=== PATIENT | female | born 1955 | race African-American/Black ===

== ENCOUNTER → 2020-12-09 | Outpatient (CLI) | payer OTHER ==
--- NOTE | 2020-12-09 18:09 | RAD ---
EXAM: XR CHEST 2V 12/09/2020 10:20 AM CLINICAL INDICATION: Left lower rib cage pain and swelling COMPARISON: None TECHNIQUE: PA and lateral views of the chest FINDINGS: The heart and mediastinum are normal. Lungs are well-expanded and clear. No consolidatio n, pleural effusion, or pneumothorax. Pulmonary vascularity is normal. No acute osseous abnormality. IMPRESSION: No acute cardiopulmonary abnormality. Electronically signed by: Kamini Chou MD (12/09/2020 6:07 PM) [id number]
--- NOTE | 2020-12-11 19:58 | RAD ---
DATE: 12/09/2020 EXAM: DIGITAL SCREEN BILAT W/CAD HISTORY: Screening COMPARISON: None available. Baseline exam. This study was interpreted with the benefit of Computerized Aided Detection (CAD). Breast Density: HETERO The breast parenchyma is heterogenously dense, which could reduce sensitivity of mammography. Breast parenchyma level C. FINDINGS: No suspicious mass, opacifications, or architectural distortion. IMPRESSION: No evidence of malignancy. BI-RADS CATEGORY: 1 NEGATIVE RECOMMENDED FOLLOW-UP: 12M 12 MONTH FOLLOW-UP PQRS compliance statement: Patient information was entered into a reminder system with a target due date for the next mammogram. Mammography is a sensitive method for finding small breast cancers, but it does not detect them all and is not a substitute for careful clinical examination. A negative mammogram does not negate a clinically suspicious finding and should not result in delay in biopsying a clinically suspicious abnormality. "Our facility is accredited by the [employer] Mammography Program."
== END ==
LOC: MAMMO 09:51
PROVIDERS: ATTEND Nurse Practitioner Family
DX: Z12.31 Encounter for screening mammogram for malignant neoplasm of breast (principal); R07.81 Pleurodynia
CPT/HCPCS: 71046; 77067

== ENCOUNTER → 2021-01-13 | Outpatient (CLI) | payer OTHER ==
--- NOTE | 2021-01-13 09:17 | RAD ---
EXAM: Abdomen sonogram. HISTORY: Elevated alpha-fetoprotein. Hepatitis C. TECHNIQUE: Sonographic imaging of the abdomen was performed. COMPARISON: None. FINDINGS: The liver is normal in size. There is heterogeneous hepatic parenchyma. No focal hepatic le diamond is seen. The gallbladder is unremarkable. The common bile duct is normal in caliber. The spleen is normal in size and contains calcified granulomas. The pancreas is unremarkable. There is an ectati c atherosclerotic abdominal aorta. The right kidney measures 8.7 cm [id number]. The left kidney mehul sures 10.4 cm [id number]. The left renal sinus is not well seen, possibly due to a partially duplic ated collecting system. IMPRESSION: 1. Heterogeneous hepatic parenchyma. No focal hepatic lesion is seen. Note is made that MRI is more s ensitive for small hepatic lesions. 2. Slight decreased right renal size. This may be due to measurement technique or mild atrophy. The l eft renal sinus is not well defined, possibly due to a partially duplicated collecting system. No onelia al mass or hydronephrosis is seen. 3. Ectatic atherosclerotic abdominal aorta. Electronically signed by: Gege Regalado MD (01/13/2021 9:15 AM) [id number]
== END ==
LOC: US 07:59
PROVIDERS: ATTEND Family Medicine
DX: B19.20 Unspecified viral hepatitis C without hepatic coma (principal); R77.2 Abnormality of alphafetoprotein
CPT/HCPCS: 76700

== ENCOUNTER → 2021-06-18 | Outpatient (CLI) | payer OTHER ==
--- NOTE | 2021-06-18 12:35 | RAD ---
AP and Lateral Views of the Chest 06/18/2021 12:25 PM Indication: Reason: COUGH X 3 WEEKS / Spl. Instructions: / History: Comparison: Chest radiograph December 09, 2020 Findings: There is no focal consolidation or infiltrate identified. The cardiomediastinal silhouette is within normal limits. There is no evidence of pneumothorax or pleural effusion. No acute osseous a bnormalities are identified. Impression: No evidence of acute cardiopulmonary process. Electronically signed by: Ruben Hutton MD (06/18/2021 12:32 PM) [id number]
== END ==
LOC: RAD 12:17
PROVIDERS: ATTEND Nurse Practitioner Primary Care
DX: R05.9 Cough, unspecified (principal)
CPT/HCPCS: 71046

== ENCOUNTER → 2021-09-10 | Outpatient (CLI) | payer OTHER ==
--- NOTE | 2021-09-10 14:23 | RAD ---
EXAM: CT CHEST WITHOUT CONTRAST (LDCT LUNG CANCER SCREENING). HISTORY: Risk factors for pulmonary malignancy. Tobacco use. TECHNIQUE: CT of the chest was performed without intravenous contrast using a low-dose lung screening protocol. Findings analysis is based on ACR Lung-RADS v1.1. *One or more of the following individual ized dose reduction techniques were utilized for this examination: 1. Automated exposure control. 2. Adjustment of the mA and/or kV according to patient size. 3. Use of iterative reconstruction technique. COMPARISON: None. FINDINGS: The heart is mildly enlarged. There is calcified atherosclerotic plaque involving the aorta and coronary arteries. There is an ectatic ascending aorta measuring 3.8 cm. There are calcified med iastinal and right hilar and infrahilar granulomas. There is no lymphadenopathy. There is no pneumothorax or pleural effusion. There is no infiltrate. There is mild emphysema. There is a 2 mm groundglass nodule along the lateral right major pleural fissure, likely due to a fissural lymph node. There is no suspicious pulmonary nodule. There is bilateral basilar atelectasis. There is no acute finding involving the upper abdomen. There is no acute or suspicious osseous finding. IMPRESSION: 1. No suspicious pulmonary nodule. Lung RADS category 1: Low dose lung cancer screening CT in [facility] is recommended. 2. Mild emphysema. 3. Mild cardiomegaly and ectatic ascending aorta. Electronically signed by: Gege Regalado MD (09/10/2021 2:21 PM) [id number]
== END ==
LOC: CT 13:22
PROVIDERS: ATTEND Nurse Practitioner Primary Care
DX: Z12.2 Encounter for screening for malignant neoplasm of respiratory organs (principal); J43.9 Emphysema, unspecified; I51.7 Cardiomegaly; I77.810 Thoracic aortic ectasia; I70.0 Atherosclerosis of aorta; I25.10 Atherosclerotic heart disease of native coronary artery without angina pectoris; J98.11 Atelectasis; R91.1 Solitary pulmonary nodule; R05.3 Chronic cough; Z91.09 Other allergy status, other than to drugs and biological substances; Z72.0 Tobacco use
CPT/HCPCS: 71271; 82306

== ENCOUNTER 2021-09-18 17:13 | Emergency (ER) | payer OTHER ==
[~2021-09-18] VITALS: Ht 172.7 cm; Wt 56.8 kg
[2021-09-18] MEDS ORDERED: ACETAMINOPHEN 325 MG TABLET PO ONE (17:45)
--- NOTE | 2021-09-18 17:45 | PHYS DOC ---
Past History Past Surgical History: (MILLIE BARKLEY DO) Alcohol Use: Heavy (MILLIE BARKLEY DO) Adult General Chief Complaint Chief Complaint: KNEE INJURY HPI HPI Patient is a 66-year-old female presenting for hip pain. Reports this is an acute on chronic issue. Denies any major changes in baseline health or preceding steroid use, fever, unintentional weight loss, travel, trauma or other concerning red flag signs or symptoms of back pain. States she woke up to use the bathroom at 2 AM when she started experiencing bilateral hip pain that radiated both anterior and posteriorly to the level of her knees. Reports pain is 10/10 in severity and has been constant throughout the day. Has been urinating and defecating without issues with no reported incontinence. She has not taken anything for the pain. Nonetheless, ongoing pain prompted her to come in for evaluation today. Admits only prior abdominal surgery was a (MILLIE BARKLEY DO) Review of Systems Review of Systems Fourteen body systems of review of systems have been reviewed. See HPI for perti nent positives and negative responses, other james all other systems are negative, non-pertinent or non-contributory (MILLIE BARKLEY DO) Physical Exam Physical Exam Constitutional: Well developed, thin and appears malnourished, no acute distress, non-toxic appearance. HENT: Normocephalic, atraumatic, bilateral external ears normal, oropharynx moist, no oral exudates, nose normal. Eyes: PERRLA, EOMI, conjunctiva normal, no discharge. Neck: Normal range of motion, no tenderness, supple, no stridor. Cardiovascular: Heart rate regular, sinus rhythm, no murmurs rubs or gallops Lungs & Thorax: Bilateral breath sounds clear to auscultation Abdomen: Bowel sounds normal, soft, no tenderness, no masses, no pulsatile mas ses. Nonsurgical abdomen, no peritoneal signs Skin: Warm, dry, no erythema, no rash. Back: No tenderness, no CVA tenderness. Extremities: No tenderness, no cyanosis, no clubbing, ROM intact, no edema. Negative Ping bilateral lower extremities Neurologic: Alert and oriented X 3, no saddle anesthesia, 2+ bilateral patellar and Achilles reflexes, no saddle anesthesia, normal motor & sensory function, no focal deficits noted. Psychologic: Affect normal, judgement normal, mood normal. (MILLIE BARKLEY DO) Current Patient Data Vital Signs Vital Signs Date Time Temp Pulse Resp B/P (MAP) Pulse Ox O2 Delivery O2 Flow Rate FiO2 09/18/21 17:25 98.2 76 16 123/84 (97) 96 Room Air (MILLIE BARKLEY DO) EKG EKG [] (MILLIE BARKLEY DO) Radiology/Procedures Radiology/Procedures [] (MILLIE BARKLEY DO) Heart Score C/O Chest Pain: No Risk Factors: Risk Factors: DM, Current or recent (<one month) smoker, HTN, HLP, family history of CAD, obesity. Risk Scores: Risk Factors: DM, Current or recent (<one month) smoker, HTN, HLP, family history of CAD, obesity. (MILLIE BARKLEY DO) Course & Med Decision Making Course & Med Decision Making ABCs unremarkable HPI and physical exam nonconcerning for any emergent or surgical issues Initial ER work-up started. At this time in care my shift was ending. Comprehensive signout given to oncoming physician. Please defer to Dr. Duggan's documentation regarding future care of patient while in ER setting (MILLIE BARKLEY DO) Course & Med Decision Making Patient care handed off to me pending imaging. Patient alert and oriented no acute distress. Given pain medicine to cover until she can see her primary care physician for her osteoarthritis noted on her imaging. Imaging otherwise unremarkable. Urine not concerning. Patient able to sit, stand and walk without issue. Discussed findings with family. Advised to follow-up in the morning with primary care physician. Gave return precautions to the ED. Family grateful, verbalized understanding and agreed with plan of discharge. (LUIS ENRIQUE DUGGAN MD) Dragon Disclaimer Dragon Disclaimer This electronic medical record was generated, in whole or in part, using a voice recognition dictation system. (MILLIE BARKLEY DO) Departure Departure: Impression: Primary Impression: Osteoarthritis Disposition: HOME / SELF CARE / HOMELESS Condition: GOOD Referrals: JUNIOR QUINTERO APRN (PCP) Patient Instructions: Osteoarthritis Additional Instructions: Thank you for coming into the emergency department tonight and allowing us to take care of you. Please read the attached information carefully to go over things we discussed. Please begin a Tylenol, ibuprofen, Benadryl and topical arthritis cream that you can get [id number] as needed and tolerated as long as you are not allergic. Please call your primary care physician in the morning to set up a follow-up as soon as you can. Please come back with new or concerning symptoms as discussed MILLIE BARKLEY DO Sep 18, 2021 17:45 LUIS ENRIQUE DUGGAN MD Sep 18, 2021 20:13
[2021-09-18 18:11] LABS: BILIRUBIN,URINE NEG (NEG); CLARITY,URINE CLEAR; COLOR,URINE YELLOW; GLUCOSE,URINE NEG (NEG)
[2021-09-18 18:12] LABS: BACTERIA,URINE 0 /HPF (0-FEW); NITRITE,URINE NEG (NEG); RBC,URINE 0 /HPF (0-2); SQUAMOUS EPITHELIAL CELL,UR FEW /LPF; UROBILINOGEN,URINE 0.2 mg/dL (0.2 mg/dL); WBC,URINE 0 /HPF (0-4)
--- NOTE | 2021-09-18 18:49 | RAD ---
EXAMINATION: Hip radiographs. VIEWS: 5 COMPARISON: None INDICATION:66 years, Female, bilateral hip pain. FINDINGS: No acute fracture, dislocation or subluxation. Mild bilateral hips osteoarthritis. Severe degenerativ e changes in the pubis symphysis and bilateral sacroiliac joints. No soft tissue swelling. IMPRESSION: Mild bilateral hips osteoarthritis. No acute findings. Electronically signed by: Pepper Jorgensen MD (09/18/2021 6:46 PM) [id number]
[2021-09-18 20:03] VITALS: BP 112/63
[2021-09-18] MEDS ORDERED: KETOROLAC 15 MG/ML VIAL. IVP ONE (20:15)
[2021-09-18] MEDS ORDERED: oxyCODONE/APAP 5/325 1 TAB TABLET PO ONE (20:15)
== END 2021-09-18 20:47 | disposition home or self-care (01) ==
LOC: ER 17:19
DX: M16.0 Bilateral primary osteoarthritis of hip (principal)
CPT/HCPCS: 73521; 81001; 96374; 99284; J1885

== ENCOUNTER 2021-11-11 15:40 | Emergency (ER) | payer SELFPAY ==
[~2021-11-11] VITALS: Ht 172.7 cm; Wt 56.8 kg
--- NOTE | 2021-11-11 16:20 | PHYS DOC ---
Past History Past Surgical History: Alcohol Use: None General Adult EDM: Chief Complaint: HIP PAIN HPI: HPI: 66-year-old female presents with right hip pain. She describes it as groin type pain that is intermittent from moderate to severe with ambulation. She has been having difficulties with this for about a month. She has been seen at [facility]. They have tried muscle relaxers, anti-inflammatories, rest, ice. Nothing seems to be working. In fact it seems like it might be getting worse the last few days. Patient denies fever or chills. No trauma or falls. No history of dislocations. Review of Systems: Review of Systems: Constitutional: Denies fever or chills Eyes: Denies change in visual acuity HENT: Denies nasal congestion or sore throat Respiratory: Denies cough or shortness of breath Cardiovascular: Denies chest pain or edema GI: Denies abdominal pain, nausea, vomiting, bloody stools or diarrhea : Denies dysuria Musculoskeletal: Right hip pain Integument: Denies rash Neurologic: Denies headache, focal weakness or sensory changes Endocrine: Denies polyuria or polydipsia Lymphatic: Denies swollen glands Psychiatric: Denies depression or anxiety Allergies: Allergies: Allergies Coded Allergies Type Severity Reaction Last Updated Verified No Known Drug Allergies 11/11/21 No Physical Exam: PE: Constitutional: Well developed, well nourished, no acute distress, non-toxic appearance. [] HENT: Normocephalic, atraumatic, bilateral external ears normal, oropharynx moist, no oral exudates, nose normal. [] Eyes: PERRLA, EOMI, conjunctiva normal, no discharge. [] Neck: Normal range of motion, no tenderness, supple, no stridor. [] Cardiovascular: Heart rate regular rhythm, no murmur [] Lungs & Thorax: Bilateral breath sounds clear to auscultation [] Abdomen: Bowel sounds normal, soft, no tenderness, no masses, no pulsatile masses. [] Skin: Warm, dry, no erythema, no rash. [] Back: No tenderness, no CVA tenderness. [] Extremities: No tenderness over the greater trochanter or anterior pelvis. Pain with internal and external rotation, pain with compression. [] Neurologic: Alert and oriented X 3, normal motor function, normal sensory function, no focal deficits noted. [] Psychologic: Affect normal, judgement normal, mood normal. [] Current Patient Data: Vital Signs: Vital Signs Date Time Temp Pulse Resp B/P (MAP) Pulse Ox O2 Delivery O2 Flow Rate FiO2 11/11/21 16:02 98.6 96 18 126/89 (101) 98 Room Air EKG: EKG: [] Radiology/Procedures: Radiology/Procedures: [] Impressions: EXAM: Pelvis and right hip, 3 views. HISTORY: Pain. Fall. COMPARISON: 09/18/2021 FINDINGS: A frontal view of the pelvis and 2 views the right hip are obtained. There is sclerosis involving the right femoral neck, new compared to the prior exam possibly due to a healing nondisplaced fracture or stress reaction. There is a bone island within the femoral head. There is degenerative subchondral sclerosis involving the sacroiliac joints. There is degenerative change in volving the lower lumbar spine. There is a large amount of stool within the rectum. IMPRESSION: 1. Small region of sclerosis involving the right femoral neck, new compared to the prior exam and possibly due to a healing nondisplaced fracture or stress re action. MRI may be useful for characterization. 2. Degenerative change at the lower lumbar levels and involving the sacroiliac j oints. Electronically signed by: Gege Regalado MD (11/11/2021 5:28 PM) [id number] DICTATED AND SIGNED BY: GEGE REGALADO MD DATE: 11/11/21 1726 CC: ALPHONSO OCHOA DO; JUNIOR QUINTERO [employer]ICAL OFFICE RECEPTIONIST ~MTH0 0 Heart Score: C/O Chest Pain: N/A Risk Factors: Risk Factors: DM, Current or recent (<one month) smoker, HTN, HLP, family history of CAD, obesity. Risk Scores: Score 0 - 3: 2.5% MACE over next 6 weeks - Discharge Home Score 4 - 6: 20.3% MACE over next 6 weeks - Admit for Clinical Observation Score 7 - 10: 72.7% MACE over next 6 weeks - Early Invasive Strategies Course & Med Decision Making: Course & Med Decision Making Pertinent Labs and Imaging studies reviewed. (See chart for details) The patient's hip x-ray shows sclerosis of the right femoral neck which could be a nondisplaced fracture or stress reaction. She also had degenerative change in sacroiliac joints. I have advised the patient follow-up with orthopedics for further evaluation. She is stable for discharge at this time. [] [place] Disclaimer: [place] Disclaimer: This electronic medical record was generated, in whole or in part, using a voice recognition dictation system. Departure Departure: Impression: Primary Impression: Hip pain, right Disposition: HOME / SELF CARE / HOMELESS Condition: STABLE Referrals: JUNIOR QUINTERO APRN (PCP) Patient Instructions: Hip Pain ALPHONSO OCHOA DO Nov 11, 2021 16:20
--- NOTE | 2021-11-11 17:30 | RAD ---
EXAM: Pelvis and right hip, 3 views. HISTORY: Pain. Fall. COMPARISON: 09/18/2021 FINDINGS: A frontal view of the pelvis and 2 views the right hip are obtained. There is sclerosis inv olving the right femoral neck, new compared to the prior exam possibly due to a healing nondisplaced fracture or stress reaction. There is a bone island within the femoral head. There is degenerative joyce bchondral sclerosis involving the sacroiliac joints. There is degenerative change involving the lower lumbar spine. There is a large amount of stool within the rectum. IMPRESSION: 1. Small region of sclerosis involving the right femoral neck, new compared to the prior exam and pos sibly due to a healing nondisplaced fracture or stress reaction. MRI may be useful for characterizati on. 2. Degenerative change at the lower lumbar levels and involving the sacroiliac joints. Electronically signed by: Gege Regalado MD (11/11/2021 5:28 PM) [id number]
[2021-11-11] MEDS ORDERED: HYDR-2759 PO (17:53)
== END 2021-11-11 17:53 | disposition home or self-care (01) ==
LOC: ER 15:40
DX: M25.551 Pain in right hip (principal)
CPT/HCPCS: 73502; 99283